=== PATIENT | male | born 2000 | race Caucasian/White ===

== ENCOUNTER 2021-04-27 23:34 | Emergency (ER) | payer BC ==
[~2021-04-27] VITALS: Ht 180.3 cm; Wt 72.6 kg
[2021-04-27 23:35] VITALS: BP 135/76
[2021-04-27] MEDS ORDERED: LORAZEPAM INJ 2 MG/ML VIAL ONE (23:40)
--- NOTE | 2021-04-27 23:51 | NUR ---
pt medicated as ordered. resting in [facility].
[2021-04-28] MEDS ORDERED: LORAZEPAM INJ 2 MG/ML VIAL IM ONE
== END 2021-04-28 00:33 | disposition home or self-care (01) ==
LOC: ER 23:34
DX: F41.0 Panic disorder [episodic paroxysmal anxiety] (principal); F12.10 Cannabis abuse, uncomplicated
CPT/HCPCS: 96372; 99283; J2060